=== PATIENT | female | born 1955 | race Caucasian/White ===

== ENCOUNTER 2018-12-18 10:00 | Outpatient (CLI) | payer MEDICARE ==
--- NOTE | 2018-12-18 12:51 | CT ---
CT PULMONARY LUNG SCAN PERFORMED WITHOUT CONTRAST: Date: 12/18/18 HISTORY: Low dose CT. Former smoker of 40 years; quit 6-7 years ago; smoked 1.5 packs/day. Does complain of sh ortness of breath. FINDINGS: The lungs are clear of any infiltrative process. There is no interstitial fibrotic lung change seen. No bronchiectasis. No pulmonary nodules are identified. No pleural effusions. Postop sternotomy changes are seen. The visualized liver parenchyma is unremarkable. Increased density seen near the gallbladder neck is probably a small gallstone. IMPRESSION: 1. Lung-RADS Category 1 - Negative. Annual screening follow-up recommended. 2. Possible gallstone. POS: [facility]
== END 2018-12-18 10:01 | disposition home or self-care (01) ==
LOC: CT 10:00
PROVIDERS: ATTEND Internal Medicine
DX: Z87.891 Personal history of nicotine dependence (principal)
CPT/HCPCS: G0297

== ENCOUNTER 2019-05-22 10:07 | Outpatient (CLI) | payer MEDICARE ==
--- NOTE | 2019-05-22 11:14 | MMO ---
Bilateral MAMMO Bilat Screen [facility]. CLINICAL HISTORY: Patient is 63 years old and is seen for screening. The patient has no family history of breast cancer. The patient has no personal history of cancer. VIEWS: The views performed were: bilateral craniocaudal with tomosynthesis and bilateral mediolateral oblique with tomosynthesis. FILMS COMPARED: The present examination has been compared to prior imaging studies performed at [facility] on 02/23/2011, 10/24/2012 and 02/04/2014, and at [facility] on 12/31/2008. This study has been interpreted with the assistance of computer-aided detection. MAMMOGRAM FINDINGS: There are scattered fibroglandular densities. There are stable benign appearing calcifications seen in both breasts. There are no suspicious masses, suspicious calcifications, or new areas of architectural distortion. IMPRESSION: THERE IS NO MAMMOGRAPHIC EVIDENCE OF MALIGNANCY. A ROUTINE FOLLOW-UP MAMMOGRAM IN 1 YEAR IS RECOMMENDED. THE RESULTS OF THIS EXAM WERE SENT TO THE PATIENT. ACR BI-RADS Category 2 - Benign finding MAMMOGRAPHY NOTE: 1. A negative mammogram report should not delay a biopsy if a dominant of clinically suspicious mass is present. 2. Approximately 10% to 15% of breast cancers are not detected by mammography. 3. Adenosis and dense breasts may obscure an underlying neoplasm. Reported by: FRANNY ARZOLA MD Electonically Signed: [id number]
== END 2019-05-22 10:08 | disposition home or self-care (01) ==
LOC: BICMAMMO 10:07
PROVIDERS: ATTEND Internal Medicine
DX: Z12.31 Encounter for screening mammogram for malignant neoplasm of breast (principal)
CPT/HCPCS: 77063; 77067